=== PATIENT | male | born 1955 | race Caucasian/White ===

== ENCOUNTER 2018-01-28 13:32 | Inpatient (IN) | payer BC ==
[2018-01-28 14:13] LABS: Anisocytosis Slight; Basophils % (A) 0 %; Eosinophils # (A) 0.2 k/uL (0-0.7); Eosinophils % (A) 3 %; HCT 26.8 % (39.0-53.0); HGB 8.7 gm/dL (13.0-17.5); Hypochromasia Slight; Lymphocytes # (A) 1.1 k/uL (1.0-4.8); Lymphocytes % (A) 12 %; MCHC 32.3 g/dL (31.0-37.0); MCV 102.3 fL (80.0-100.0); Macrocytosis Moderate; Mean Platelet Volume 7.9; Monocytes # (A) 0.5 k/uL (0-1.0); Monocytes % (A) 6 %; Neutrophils # (A) 6.7 k/uL (1.3-7.7); Neutrophils % (A) 77 %; Platelet Count 264 k/uL (150-450); Poikilocytosis Slight; RBC 2.62 m/uL (4.30-5.90); RDW 16.6 % (11.5-15.5); WBC 8.6 k/uL (3.8-10.6)
[2018-01-28 14:22] LABS: INR 1.1 (<1.2); Partial Thromboplastin Time 22.2 sec (22.0-30.0)
[2018-01-28 14:23] LABS: ALT 37 U/L (21-72); AST 23 U/L (17-59); Albumin 3.2 g/dL (3.5-5.0); Alkaline Phosphatase 70 U/L (38-126); Anion Gap 12 mmol/L; Blood Urea Nitrogen 23 mg/dL (9-20); Calcium 8.6 mg/dL (8.4-10.2); Carbon Dioxide 32 mmol/L (22-30); Chloride 98 mmol/L (98-107); Glucose 107 mg/dL (74-99); Potassium 3.8 mmol/L (3.5-5.1); Sodium 142 mmol/L (137-145); Total Bilirubin 0.6 mg/dL (0.2-1.3); Total Protein 5.5 g/dL (6.3-8.2)
[2018-01-28 14:45] LABS: Creatine Kinase MB 0.6 ng/mL (0.0-2.4); Troponin I 0.023 ng/mL (0.000-0.034)
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
[2018-01-28] MEDS ORDERED: ONDANSETRON 4 MG/2 ML VIAL IVP PRN (16:07)
[2018-01-28] MEDS ORDERED: NALOXONE 0.4 MG/ML 1 ML VIAL IV PRN (16:07)
--- NOTE | 2018-01-28 16:31 | XR ---
EXAMINATION TYPE: XR chest 2V DATE OF EXAM: 01/28/2018 COMPARISON: 01/08/2015 HISTORY: Cough and chest discomfort TECHNIQUE: Frontal and lateral views of the chest are obtained. FINDINGS: There is no focal air space opacity, pleural effusion, or pneumothorax seen. The cardiac silhouette size is enlarged with multilead left-sided cardiac device. The osseous structures are in tact. Chronic mild right hemidiaphragm elevation is unchanged from the prior. Platelike left basilar subsegmental atelectasis is seen. Small amount of intrafissural fluid is noted on the right. Left-isaak ed acromioclavicular arthropathy and mild degenerative changes of the thoracic spine are seen. IMPRESSION: Platelike subsegmental left basilar atelectasis. No focal consolidation to suggest pneum onia. Trace amount of right intrafissural fluid.
--- NOTE | 2018-01-28 16:32 | XR ---
EXAMINATION TYPE: XR abdomen 1V DATE OF EXAM: 01/28/2018 4:23 PM CLINICAL HISTORY: Abdominal pain beginning today TECHNIQUE: Single view upright abdominal radiograph was obtained. COMPARISON: None. FINDINGS: Scattered gas is seen in non-distended small bowel loops. Gas and fecal material is seen in non-distended colon. There is no pneumoperitoneum or abnormal calcification appreciated. The lung ba ses are clear and the osseous structures are intact. Moderate calcific atheromatous changes are noted of the femoral arteries. Mild femoral acetabular arthropathy is seen bilaterally. IMPRESSION: Nonobstructive bowel gas pattern.
[2018-01-28 17:14] VITALS: BMI 40.1
[2018-01-28] MEDS: CARVEDILOL 12.5 MG TAB PO SCH (17:47)
[2018-01-28] MEDS: SODIUM CHLORIDE 0.9% 1,000 ML IV SCH (17:47)
[2018-01-28 20:32] LABS: Anisocytosis Slight; HCT 26.3 % (39.0-53.0); HGB 8.3 gm/dL (13.0-17.5); Hypochromasia Slight; MCH 32.7 pg (25.0-35.0); MCHC 31.6 g/dL (31.0-37.0); MCV 103.7 fL (80.0-100.0); Macrocytosis Moderate; Mean Platelet Volume 8.2; Platelet Count 227 k/uL (150-450); RBC 2.54 m/uL (4.30-5.90); RDW 16.2 % (11.5-15.5); WBC 8.9 k/uL (3.8-10.6)
[2018-01-28] MEDS: PANTOPRAZOLE 40 MG/10 ML VIAL IV SCH (21:10)
[2018-01-28] MEDS: SOTALOL 120 MG TAB PO SCH (21:10)
--- NOTE | 2018-01-28 22:11 | HP ---
CONSULTATION Barrie Santiago is a 62-year-old male who presented to the ER at [facility] with increasing dizziness. He also had been having some shortness of breath. This has been going on for 2-3 days. He was found to have a tarry black stool today and came in for further evaluation. When he came in, he was found to have anemia and was symptomatic. He subsequently was admitted for further evaluation. He is on anticoagulation in the form of Xarelto for paroxysmal atrial fibrillation and a history of ventricular tachycardia. PAST MEDICAL HISTORY: Positive for coronary artery disease, history of ventricular tachycardia. History of cardiomyopathy with biventricular failure with biventricular pacemaker placement as well as antiarrhythmic medication. History of hyperlipidemia, hypertension, history of obstructive sleep apnea for which he is on CPAP but does not use this. History of contusion in the past, history of left internal jugular vein thrombosis, history of left knee arthroscopy, history of anxiety, history of obesity, history of borderline diabetes mellitus. FAMILY HISTORY: Positive for coronary artery disease in his mother. History of myocardial infarction in his father. SOCIAL HISTORY: Patient is a former smoker. Does not drink alcohol excessively. REVIEW OF SYSTEMS: Noncontributory other than for what is described in the history of present illness. PAST MEDICAL HISTORY: He has no known drug allergies. MEDICATIONS: Prior to admission were Aldactone, Betapace, Xarelto, multivitamin, magnesium chloride, Cozaar, Lasix, Coreg and Lipitor. PHYSICAL EXAMINATION: He was lying in bed. He was short of breath when he laid down flat. He had pallor. His blood pressure was 104/50, respiratory rate of 18, pulse rate 81, temperature 97.9, O2 saturation on room is 95%. HEENT reveals pupils are equal. No jugular venous distention. Mallampati 3. He has a short, thick neck. Chest reveals decreased breath sounds. Mild prolonged expiration. No wheeze. Cardiovascular system reveals an S1, S2. No S3, no S4. ABDOMEN: Soft, there is 2+ to 3+ pedal edema. LABS: Reveal a white count of 8.6, hemoglobin of 8.7, MCV of 102.3, platelet count of 264,000. Sodium 142, potassium 3.8, chloride 98, bicarb 32, BUN 23, creatinine of 0.85. Stool for occult blood is positive. Albumin is 2.2, total protein of 5.5, glucose of 107. IMPRESSION: At this time. 1. Acute gastrointestinal bleed. 2. Symptomatic anemia. 3. Cardiomyopathy. 4. History of cardiac dysrhythmia and paroxysmal atrial fibrillation. 5. Obesity. 6. Obstructive sleep apnea. 7. Cor pulmonale with pulmonary hypertension from obstructive sleep apnea as well as cardiomyopathy is likely. At this point in time, we will admit the patient to the telemetry unit, stop his anticoagulation, keep him on his anti cardiac medications, keep him on Prilosec, have him seen by General Surgery, Dr. Byers. We will have cardiology further evaluate the patient as well as for his needs of long-term anticoagulation. He was counseled on the need to consider restarting using CPAP long-term and lose weight. His prognosis at this time is guarded. MMSHORTY / GAEL: [id number] /
[2018-01-28] MEDS: FUROSEMIDE 10 MG/ML 10 ML VIAL IV SCH (23:48)
[2018-01-29] MEDS: SODIUM CHLORIDE 0.9% 1,000 ML IV SCH ×3 (01:57→10:39)
[2018-01-29 04:27] LABS: HCT 25.8 % (39.0-53.0); HGB 8.5 gm/dL (13.0-17.5); Hypochromasia Slight; MCH 33.8 pg (25.0-35.0); MCHC 32.7 g/dL (31.0-37.0); MCV 103.3 fL (80.0-100.0); Macrocytosis Moderate; Mean Platelet Volume 7.8; Platelet Count 223 k/uL (150-450); RDW 15.9 % (11.5-15.5); WBC 7.4 k/uL (3.8-10.6)
[2018-01-29 04:38] LABS: ALT 41 U/L (21-72); AST 20 U/L (17-59); Albumin 2.8 g/dL (3.5-5.0); Alkaline Phosphatase 62 U/L (38-126); Anion Gap 11 mmol/L; Blood Urea Nitrogen 17 mg/dL (9-20); Carbon Dioxide 33 mmol/L (22-30); Chloride 101 mmol/L (98-107); Glucose 103 mg/dL (74-99); Potassium 3.3 mmol/L (3.5-5.1); Sodium 145 mmol/L (137-145); Total Bilirubin 0.6 mg/dL (0.2-1.3)
[2018-01-29 08:08] LABS: Anisocytosis Slight; HCT 24.8 % (39.0-53.0); HGB 8.1 gm/dL (13.0-17.5); Hypochromasia Slight; MCH 33.1 pg (25.0-35.0); MCHC 32.5 g/dL (31.0-37.0); MCV 101.6 fL (80.0-100.0); Macrocytosis Slight; Mean Platelet Volume 7.8; Platelet Count 232 k/uL (150-450); Poikilocytosis Slight; RBC 2.44 m/uL (4.30-5.90); RDW 16.2 % (11.5-15.5); WBC 7.8 k/uL (3.8-10.6)
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
[2018-01-29] MEDS: CARVEDILOL 12.5 MG TAB PO SCH ×2 (08:46→18:00)
[2018-01-29] MEDS: FUROSEMIDE 10 MG/ML 10 ML VIAL IV SCH ×3 (08:46→23:46)
[2018-01-29] MEDS: MAGNESIUM OXIDE 400 MG TAB PO SCH (08:47)
[2018-01-29] MEDS: ATORVASTATIN 20 MG TAB PO SCH (08:47)
[2018-01-29] MEDS: LOSARTAN 25 MG TAB PO SCH (08:47)
[2018-01-29] MEDS: MULTIVITAMINS, THERA 1 EACH TAB PO SCH (08:47)
[2018-01-29] MEDS: PANTOPRAZOLE 40 MG/10 ML VIAL IV SCH ×2 (08:47→22:20)
[2018-01-29] MEDS: SOTALOL 120 MG TAB PO SCH ×2 (09:24→22:20)
[2018-01-29] MEDS: SPIRONOLACTONE 25 MG TAB PO SCH (09:24)
--- NOTE | 2018-01-29 09:36 | CONS ---
CONSULTATION DATE OF SERVICE: 01/29/2018. HISTORY: Mr. Santiago is a 62-year-old male with a history of nonischemic cardiomyopathy, history of atrial fibrillation, history of ICD implantation, who presented with evidence of GI bleeding. Cardiology consultation was requested because of his prior history. The patient is noncompliant, has not seen Dr. Rosas in over a year. He has been running out of his Lasix and has been taking it less frequently. He also has been taking the Xarelto only twice a week. The patient was in the hospital in 2014 because of internal jugular thrombosis related to his ICD implantation. Recently, she has been complaining of progressive dyspnea on exertion, peripheral edema, orthopnea. He is limited in his physical activity. He denies any chest pain or dizziness. He denies any palpitations. He underwent cardiac catheterization in 2010 and was found to have a moderate triple vessel disease. He had a prior episode of paroxysmal atrial fibrillation, but appears to be in persistent atrial fibrillation at this time, and a prior episode of ventricular tachycardia. He has some dizziness but no syncope. In 2014, his ejection fraction was less than 20% with [id number] mitral and questionable thrombus in the apex. His coronary risk factors are positive for history of hypertension. He is a nonsmoker for over 30 years. He has a history of hyperlipidemia. REVIEW OF SYSTEMS: RESPIRATORY SYSTEM: Had dyspnea on exertion. No recent wheezing. GI SYSTEM: He had GI bleeding as noted, which is new for him. He has no prior history. SYSTEM: No dysuria or hematuria. NERVOUS SYSTEM: No stroke or seizure. PHYSICAL EXAMINATION: He is a 62-year-old male, alert, oriented, no apparent distress. Blood pressure 134/60 with a heart in the 80s. HEAD: Normocephalic. Eyes sclerae anicteric. NECK: No lungs with few crackles at the bases. HEART: Irregular irregular. S1, S2. No S3. Systolic murmur at the apex. No diastolic murmur. ABDOMEN: Soft and nontender. Positive bowel sounds. No organomegaly. EXTREMITIES: +2 edema bilaterally. LAB DATA: Lab data revealed a hemoglobin of 8.7 on admission, 8.1 today. BUN and creatinine of 17 and 0.8. Potassium is 3.3. He is heme positive. EKG revealed atrial fibrillation with interventricular conduction delay and nonspecific ST-T wave changes. Chest x-ray revealed no infiltrate. Abdominal x-ray shows no obstruction. IMPRESSION: 1. Gastrointestinal bleeding, probably worsened by the anticoagulation, although the patient has not been taking the Xarelto on a regular basis. 2. Severe nonischemic cardiomyopathy. 3. Atrial fibrillation, persistent. 4. Status post ICD implant. 5. History of coronary artery disease. 6. Hypertension. 7. Hyperlipidemia. 8. Noncompliance. RECOMMENDATIONS: I had discussed with the patient at length the importance of compliance in view of his prognosis. I explained to him the severity of his underlying cardiac disease. The patient has been re-initiated on his oral medication except the Xarelto and is receiving IV Lasix. We will follow his renal function closely. I will obtain a repeat echocardiogram. Depending on his progress, further recommendations will be made. Thank you for this consult. We will follow with you. LUCIANO / GAEL: [id number] /
[2018-01-29] MEDS ORDERED: Magnesium Replacement Protocol 1 EACH MISC MISCELLANE PRN (10:00)
[2018-01-29] MEDS ORDERED: Potassium Replacement Protocol 1 EACH MISC MISCELLANE PRN (10:00)
--- NOTE | 2018-01-29 10:06 | P.PN ---
Subjective Progress Note Date: 01/29/18 HPI: This is a 62-year-old male who presented to the ER at [facility] with increasing dizziness. He had also been having some shortness of breath. This has been going on for 2-3 days. He was found to have a tarry black stool today and came in for further evaluation. When he came in, he was found to have anemia and was symptomatic. He subsequently was admitted for further evaluation. He is on anticoagulation in the form of Xarelto for proximal atrial fibrillation with a history of ventricular tachycardia. Interval History: 01/29/18- patient is being seen examined and evaluated today on rounds. His hemoglobin is stable today at 8.1. He had a positive blood specimen. Xarelto has been on hold. He is being seen by surgical services and is planned for an upper and lower scope on 01/30/2018. He continues on IV Lasix as well as Aldactone. The patient states he does have some shortness of breath with exertion, denies any cough or congestion at this time. States he does have a CPAP machine at home however does not utilize that as he is unable to tolerate it and he cannot sleep with it on. His potassium today is 3.3 and that is being replaced. Objective - Vital Signs Vital signs: Vital Signs Temp 97.6 F 01/29/18 07:05 Pulse 85 01/29/18 07:05 Resp 18 01/29/18 07:05 BP 135/60 01/29/18 07:05 Pulse Ox 94 L 01/29/18 07:05 Intake & Output 01/28/18 01/29/18 01/29/18 18:59 06:59 18:59 Intake Total 500 Balance 500 Weight 127.006 kg 126 kg 126 kg Intake: IV 500 Sodium Chloride 0.9% 1, 500 000 ml @ 125 mls/hr IV . Q8H [facility] Rx#:[id number] Other: Voiding Method Toilet Toilet Toilet Bedside Commode Urinal # Voids 1 1 - Exam GENERAL EXAM: Alert, active, comfortable in no apparent distress. HEAD: Normocephalic. EYES: Normal reaction of pupils, equal size. NOSE: Clear with pink turbinates. THROAT: No erythema or exudates. NECK: No masses, no JVD. Supple, thick CHEST: No chest wall deformity. LUNGS: Equal air entry with no crackles, wheeze, rhonchi or dullness. CVS: S1 and S2 normal with no audible mumurs, regular rhythm. ABDOMEN: No hepatosplenomegaly, normal bowel sounds, no guarding or rigidity. EXTREMITIES: +2 edema noted, pedal pulses palpable. CENTRAL NERVOUS SYSTEM: No focal deficits, tone is normal in all 4 extremities. - Labs CBC & Chem 7: 01/29/18 07:30 01/29/18 04:02 Labs: Abnormal Lab Results - Last 24 Hours (Table) 01/28/18 01/28/18 01/28/18 Range/Units 14:05 14:05 14:05 RBC 2.62 L (4.30-5.90) m/uL Hgb 8.7 L (13.0-17.5) gm/dL Hct 26.8 L (39.0-53.0) % MCV 102.3 H (80.0-100.0) fL RDW 16.6 H (11.5-15.5) % Potassium (3.5-5.1) mmol/L Carbon Dioxide 32 H (22-30) mmol/L BUN 23 H (9-20) mg/dL Glucose 107 H (74-99) mg/dL Calcium (8.4-10.2) mg/dL Total Creatine Kinase 22 L (55-170) U/L Total Protein 5.5 L (6.3-8.2) g/dL Albumin 3.2 L (3.5-5.0) g/dL 01/28/18 01/29/18 01/29/18 Range/Units 20:15 04:02 04:02 RBC 2.54 L 2.50 L (4.30-5.90) m/uL Hgb 8.3 L 8.5 L (13.0-17.5) gm/dL Hct 26.3 L 25.8 L (39.0-53.0) % MCV 103.7 H 103.3 H (80.0-100.0) fL RDW 16.2 H 15.9 H (11.5-15.5) % Potassium 3.3 L (3.5-5.1) mmol/L Carbon Dioxide 33 H (22-30) mmol/L BUN (9-20) mg/dL Glucose 103 H (74-99) mg/dL Calcium 8.0 L (8.4-10.2) mg/dL Total Creatine Kinase (55-170) U/L Total Protein 5.0 L (6.3-8.2) g/dL Albumin 2.8 L (3.5-5.0) g/dL 01/29/18 Range/Units 07:30 RBC 2.44 L (4.30-5.90) m/uL Hgb 8.1 L (13.0-17.5) gm/dL Hct 24.8 L (39.0-53.0) % MCV 101.6 H (80.0-100.0) fL RDW 16.2 H (11.5-15.5) % Potassium (3.5-5.1) mmol/L Carbon Dioxide (22-30) mmol/L BUN (9-20) mg/dL Glucose (74-99) mg/dL Calcium (8.4-10.2) mg/dL Total Creatine Kinase (55-170) U/L Total Protein (6.3-8.2) g/dL Albumin (3.5-5.0) g/dL Assessment and Plan Assessment: Assessment Acute GI bleed Symptomatic anemia, from blood loss, occult stool positive Cardiomyopathy History of cardiac dysrhythmia and proximal atrial fibrillation Obesity Obstructive sleep apnea Cor pulmonale pulmonary hypertension from obstructive sleep apnea as well as cardiomyopathy is likely Plan Medications have been reviewed and will be continued as ordered. We will replace potassium per protocol. Continue with diuresis and maintain a negative fluid balance. Patient is scheduled to undergo a upper and lower endoscopy with surgical services tomorrow morning. Cardiology also on consult to evaluate the patient's need for long-term anticoagulation. Patient has been educated on the importance of using his CPAP as well as weight loss. Continue with pulmonary hygiene, coughing and deep breathing exercises, and supportive care. Supplemental oxygen to maintain oxygen saturations of 92% or better. Continue nebulizer treatments. GI and DVT prophylaxis. We will continue to monitor labs/results and adjust treatment as necessary. Further recommendations pending. I performed an examination of the patient and discussed their management with the nurse practitioner. I have reviewed the nurse practitioner's note and agree with the documented findings and plan of care.
[2018-01-29] MEDS: POTASSIUM CHLORIDE ER 20 MEQ TAB.ER PO SCH ×2 (10:40→11:36)
[2018-01-29] MEDS ORDERED: PEG 3350-NA SULF,BICARB,CL/KCL 4,000 ML BOTTLE PO ONE (12:00)
--- NOTE | 2018-01-29 12:38 | ECHOF ---
Referral Reason:cm MEASUREMENTS -------- HEIGHT: 177.8 cm WEIGHT: 125.6 kg BP: 135/60 IVSd: 1.4 cm (0.6 - 1.1) LVIDd: 5.8 cm (3.9 - 5.3) LVPWd: 1.4 cm (0.6 - 1.1) IVSs: 1.7 cm LVIDs: 5.2 cm LVPWs: 1.6 cm LAESV Index (A-L): 56.08 ml/m Ao Diam: 3.5 cm (2.0 - 3.7) AV Cusp: 2.0 cm (1.5 - 2.6) LA Diam: 5.4 cm (2.7 - 3.8) EPSS: 1.6 cm MV E Cr: 1.22 m/s MV DecT: 153 ms MV A Cr: 0.00 m/s MV E/A Ratio: 620.79 RAP: 15.00 mmHg RVSP: 39.89 mmHg MV EF SLOPE: 55.97 mm/s (70 - 150) MV EXCURSION: 1.95 cm (> 18.000) FINDINGS -------- Atrial fibrillation. Pacerwire seen in RV and RA. This was a technically adequate study. The left ventricular size is normal. There is moderate concentric left ventricular hypertrophy. T here is severe global hypokinesis of LV . Overall left ventricular systolic function is severely im paired with, an EF < 20%. The right ventricle is normal in size and function. LA is severely dilated >40 ml/m2 Electronic pacemaker lead seen in the right ventricular cavity. There is mild aortic valve sclerosis. Mild mitral annular calcification present. [id number] mitral regurgitation is present. Moderate tricuspid regurgitation present. There is mild pulmonary hypertension. The right ventric ular systolic pressure, as measured by Doppler, is 39.89mmHg. The pulmonic valve was not well visualized. There is no pulmonic regurgitation present. The aortic root size is normal. The inferior vena cava is dilated with no significant inspiratory collapse which is consistent estima shira right atrial pressure of >20 mmHg. There is no pericardial effusion. CONCLUSIONS -------- 1. Atrial fibrillation. 2. Pacerwire seen in RV and RA. 3. This was a technically adequate study. 4. The left ventricular size is normal. 5. There is moderate concentric left ventricular hypertrophy. 6. There is severe global hypokinesis of LV . 7. Overall left ventricular systolic function is severely impaired with, an EF < 20%. 8. LA is severely dilated >40 ml/m2 9. Electronic pacemaker lead seen in the right ventricular cavity. 10. There is mild aortic valve sclerosis. 11. Mild mitral annular calcification present. 12. Sywflyho-zc-qgcabt mitral regurgitation is present. 13. Moderate tricuspid regurgitation present. 14. There is mild pulmonary hypertension. 15. The pulmonic valve was not well visualized. 16. There is no pulmonic regurgitation present. 17. The aortic root size is normal. 18. The inferior vena cava is dilated with no significant inspiratory collapse which is consistent es timated right atrial pressure of >20 mmHg. 19. There is no pericardial effusion. MATERIAL CUTTER: Jose Delaney RDCS
[2018-01-29 21:01] LABS: Anisocytosis Slight; Basophils # (A) 0.1 k/uL (0-0.2); Basophils % (A) 1 %; Eosinophils # (A) 0.2 k/uL (0-0.7); Eosinophils % (A) 3 %; HCT 26.8 % (39.0-53.0); HGB 8.6 gm/dL (13.0-17.5); Hypochromasia Slight; Lymphocytes # (A) 1.2 k/uL (1.0-4.8); Lymphocytes % (A) 16 %; MCH 32.8 pg (25.0-35.0); MCV 102.4 fL (80.0-100.0); Macrocytosis Moderate; Mean Platelet Volume 7.3; Monocytes # (A) 0.7 k/uL (0-1.0); Monocytes % (A) 9 %; Neutrophils # (A) 5.4 k/uL (1.3-7.7); Neutrophils % (A) 70 %; Platelet Count 275 k/uL (150-450); Poikilocytosis Slight; RBC 2.61 m/uL (4.30-5.90); RDW 16.2 % (11.5-15.5); WBC 7.7 k/uL (3.8-10.6)
[2018-01-30 07:47] VITALS: RESP 16
[2018-01-30 07:57] LABS: Anisocytosis Slight; Basophils % (A) 0 %; Eosinophils # (A) 0.2 k/uL (0-0.7); Eosinophils % (A) 2 %; HCT 29.6 % (39.0-53.0); HGB 9.1 gm/dL (13.0-17.5); Hypochromasia Moderate; Lymphocytes # (A) 1.1 k/uL (1.0-4.8); Lymphocytes % (A) 15 %; MCH 31.7 pg (25.0-35.0); MCHC 30.6 g/dL (31.0-37.0); MCV 103.5 fL (80.0-100.0); Macrocytosis Moderate; Mean Platelet Volume 7.7; Monocytes # (A) 0.5 k/uL (0-1.0); Monocytes % (A) 6 %; Neutrophils # (A) 5.4 k/uL (1.3-7.7); Neutrophils % (A) 75 %; Platelet Count 298 k/uL (150-450); Poikilocytosis Slight; RBC 2.86 m/uL (4.30-5.90); RDW 16.1 % (11.5-15.5); WBC 7.2 k/uL (3.8-10.6)
[2018-01-30] MEDS ORDERED: PROPOFOL 10 MG/ML 20 ML VIAL IV ONE (08:11)
[2018-01-30] MEDS ORDERED: LIDOCAINE 1% INJ 10MG/ML (20 ML MDV) ONE (08:11)
[2018-01-30 08:12] LABS: Blood Urea Nitrogen 11 mg/dL (9-20); Calcium 8.1 mg/dL (8.4-10.2); Magnesium 1.7 mg/dL (1.6-2.3); Potassium 3.3 mmol/L (3.5-5.1); Sodium 145 mmol/L (137-145)
[2018-01-30 08:16] LABS: Anion Gap 13 mmol/L; Carbon Dioxide 33 mmol/L (22-30); Chloride 99 mmol/L (98-107); Glucose 102 mg/dL (74-99)
[2018-01-30] MEDS ORDERED: IV FLUID CONTINUATION 900 ML IV ONE (08:25)
--- NOTE | 2018-01-30 08:51 | P.OP ---
Date of Procedure: 01/30/18 Preoperative Diagnosis: GI bleed Postoperative Diagnosis: Gastritis Duodenitis Healing gastric ulcer Insufficient prep Procedure(s) Performed: Esophagogastroduodenoscopy with biopsy Attempted colonoscopy Surgeon: Keith Byers Pathology: other (Biopsies of duodenum, antrum, esophagus) Condition: stable Disposition: floor Indications for Procedure: 62-year-old male presented to the emergency department due to black and tarry stool and shortness of breath. Due to this, plan for upper and lower endoscopy was made. The patient was explained the risks, benefits and alternatives to the procedure and provided consent prior to attending the endoscopy suite. Operative Findings: Notable inflammatory changes and a healing ulcer in the antrum and inflammatory changes in the first portion of the duodenum, esophagus appeared endoscopically normal Description of Procedure: The patient was brought into the endoscopy suite and placed in the left lateral decubitus position. Sedation was provided by anesthesia. The endoscope was then placed into the oropharynx and into the esophagus and advanced to the second portion of the duodenum. The scope was then slowly retrieved into the first portion the duodenum and it was noted to have inflammatory changes. Biopsies were taken. The scope was then retrieved into the antrum of the stomach. There appeared to be an area of a previous small ulcer that was healing. There was no active stigmata of bleeding. Biopsies of the antrum were taken. A retroflexed view was then performed. The stomach was noted to insufflate appropriately. The gastric folds distended appropriately. There was no obvious polypoid or additional inflammatory changes. There was no significant hiatal hernia. The scope was then retrieved into the esophagus. The esophagus appeared endoscopically normal. Biopsies were taken. The scope was then fully retrieved and this ended this portion of the procedure. A digital rectal exam was performed and the patient was noted to have mild internal hemorrhoids. The endoscope was then placed into the rectum and it was immediately clear that the patient still had solid stool throughout his rectum. There was no appropriate view to continue to advance the colonoscope and it was deemed unsafe to continue with this procedure. The colonoscopy portion of this case was then aborted. The patient can begin a regular diet. He will require a PPI during admission and at discharge. He will require follow-up to perform a colonoscopy as an outpatient.
[2018-01-30 09:00] VITALS: TEMP 983
[2018-01-30 09:14] VITALS: BP 135/85; PULSE 79
[2018-01-30] MEDS: CARVEDILOL 12.5 MG TAB PO SCH (09:14)
[2018-01-30] MEDS: PANTOPRAZOLE 40 MG/10 ML VIAL IV SCH (09:14)
[2018-01-30] MEDS: FUROSEMIDE 10 MG/ML 10 ML VIAL IV SCH (09:15)
[2018-01-30] MEDS: SPIRONOLACTONE 25 MG TAB PO SCH (09:17)
[2018-01-30] MEDS: ATORVASTATIN 20 MG TAB PO SCH (09:17)
[2018-01-30] MEDS: MAGNESIUM OXIDE 400 MG TAB PO SCH (09:17)
[2018-01-30] MEDS: MULTIVITAMINS, THERA 1 EACH TAB PO SCH (09:17)
[2018-01-30] MEDS: SOTALOL 120 MG TAB PO SCH (09:17)
[2018-01-30] MEDS: LOSARTAN 25 MG TAB PO SCH (09:17)
[2018-01-30] MEDS ORDERED: LACTATED RINGERS 1,000 ML IV SCH (09:29)
[2018-01-30] MEDS ORDERED: LIDOCAINE 1% 20 ML VIAL (10MG/ML) FOR IV START INTRADERMA PRN (09:29)
--- NOTE | 2018-01-30 10:24 | P.DS ---
Providers Date of admission: 01/29/18 08:37 Expected date of discharge: 01/30/18 Attending physician: Leno Burrows Consults: 01/28/18 16:08 Consult Physician Routine Consulting Provider: Keith Byers Consult Reason/Comments: Upper GI bleed with anemia Do you want consulting provider notified?: Yes 01/28/18 16:56 Consult Physician Routine Consulting Provider: Jeremy Rosas Consult Reason/Comments: cardiac arrhythmia Do you want consulting provider notified?: Yes Primary care physician: Leno Burrows Hospital Course: HPI: This is a 62-year-old male who presented to the ER at [facility] with increasing dizziness. He had also been having some shortness of breath. This has been going on for 2-3 days. He was found to have a tarry black stool today and came in for further evaluation. When he came in, he was found to have anemia and was symptomatic. He subsequently was admitted for further evaluation. He is on anticoagulation in the form of Xarelto for proximal atrial fibrillation with a history of ventricular tachycardia. Interval History: 01/29/18- patient is being seen examined and evaluated today on rounds. His hemoglobin is stable today at 8.1. He had a positive blood specimen. Xarelto has been on hold. He is being seen by surgical services and is planned for an upper and lower scope on 01/30/2018. He continues on IV Lasix as well as Aldactone. The patient states he does have some shortness of breath with exertion, denies any cough or congestion at this time. States he does have a CPAP machine at home however does not utilize that as he is unable to tolerate it and he cannot sleep with it on. His potassium today is 3.3 and that is being replaced. 01/30/18- patient being seen examined and evaluated today on rounds. The patient is resting up in bed on room air. He did undergo an EGD this morning and was shown to have some healing gastric ulcers with no active bleeding. Colonoscopy was unable to be completed due to insufficient prep. Surgical services raised requesting an outpatient colonoscopy be completed. Also surgical services recommendation that the patient continue with those people PI and he can also be restarted on his anticoagulation on discharge. Pertinent Studies: Abdominal x-ray Chest x-ray Echocardiogram Procedures: EGD Patient Condition at Discharge: Fair Plan - Discharge Summary Discharge Rx Participant: Yes New Discharge Prescriptions: New Pantoprazole [Protonix] 40 mg PO AC-BID #60 tablet. Continue Magnesium Chloride [Mag64] 64 mg PO DAILY Multivitamin [Men's Multi-Vitamin] 1 tab PO DAILY Spironolactone [Aldactone] 25 mg PO DAILY tab Carvedilol [Coreg] 50 mg PO BID Atorvastatin [Lipitor] 20 mg PO DAILY Losartan [Cozaar] 25 mg PO DAILY Furosemide [Lasix] 40 mg PO BID Sotalol [Betapace] 120 mg PO BID Rivaroxaban [Xarelto] 20 mg PO Q3D Discharge Medication List Magnesium Chloride [Mag64] 64 mg PO DAILY 05/05/14 [History] Multivitamin [Men's Multi-Vitamin] 1 tab PO DAILY 01/08/15 [History] Spironolactone [Aldactone] 25 mg PO DAILY tab 01/11/15 [Rx] Carvedilol [Coreg] 50 mg PO BID 08/29/16 [History] Atorvastatin [Lipitor] 20 mg PO DAILY 09/01/16 [History] Losartan [Cozaar] 25 mg PO DAILY 09/01/16 [History] Furosemide [Lasix] 40 mg PO BID 01/28/18 [History] Rivaroxaban [Xarelto] 20 mg PO Q3D 01/28/18 [History] Sotalol [Betapace] 120 mg PO BID 01/28/18 [History] Pantoprazole [Protonix] 40 mg PO AC-BID #60 tablet. 01/30/18 [Rx] Follow up Appointment(s)/Referral(s): Jeremy Rosas MD [STAFF PHYSICIAN] - 1 Week Keith Byers DO [Doctor of Osteopathic Medicine] - 1 Week Leno Burrows MD [Primary Care Provider] - 1-2 days Patient Instructions/Handouts: Gastrointestinal Bleeding (DC), Heart Failure ( ED) Discharge Disposition: HOME SELF-CARE
[2018-01-30] MEDS: POTASSIUM CHLORIDE ER 20 MEQ TAB.ER PO SCH ×3 (11:25→12:34)
--- NOTE | 2018-01-30 13:37 | P.PN ---
Subjective Progress Note Date: 01/30/18 Mr. Kirkland is seen and examined today sitting up eating breakfast in no acute distress. Echocardiogram obtained yesterday reveals severe global hypokinesia, severely impaired left ventricular systolic function with ejection fraction less than 20%, severely dilated left atrium, mild aortic valve sclerosis, mild to moderate mitral regurgitation and moderate tricuspid regurgitation. He underwent EGD this morning which revealed a healing ulcer and inflammatory changes. Colonoscopy was aborted secondary to poor prep. He was initiated on Protonix twice a day. He continues to have significant swelling in his bilateral lower extremities. Diuretics have been changed to oral per primary care team. He is down 7 kg since admission. Creatinine today 0.82, potassium 3.3, sodium 145, hemoglobin 9.1. Blood pressure 135/85 heart rate 79 afebrile maintaining oxygen saturation on room air. Objective - Vital Signs Vital signs: Vital Signs Temp 983 F H 01/30/18 08:59 Pulse 79 01/30/18 09:13 Resp 16 01/30/18 07:12 BP 135/85 01/30/18 09:13 Pulse Ox 96 01/30/18 09:13 Intake & Output 01/29/18 01/30/18 01/30/18 18:59 06:59 18:59 Intake Total 5400 100 Balance 5400 100 Weight 126 kg 120.5 kg Intake: IV 250 100 Sodium Chloride 0.9% 1, 250 000 ml @ 125 mls/hr IV . Q8H [facility] Rx#:[id number] Intake, IV Titration 300 Amount Sodium Chloride 0.9% 1, 300 000 ml @ 60 mls/hr IV . [id number] [facility] Rx#:[id number] Oral 4850 Other: Voiding Method Toilet Toilet Toilet Bedside Commode Bedside Commode Bedside Commode Urinal Urinal Urinal # Voids 6 4 # Bowel Movements 2 - Exam GENERAL: Well-appearing, well-nourished and in no acute distress. Obese. NECK: Supple without JVD or thyromegaly. LUNGS: Bibasilar rales. Respiration equal and unlabored. No wheezes or rhonchi. HEART: Irregular rate and rhythm with systolic murmur at the apex, no rubs or gallops. S1 and S2 heard. EXTREMITIES: Normal range of motion, 2+ bilateral lower extremity edema. No clubbing or cyanosis. Peripheral pulses intact. - Labs CBC & Chem 7: 01/30/18 07:25 01/30/18 07:25 Labs: Abnormal Lab Results - Last 24 Hours (Table) 01/29/18 01/30/18 01/30/18 Range/Units 20:40 07:25 07:25 RBC 2.61 L 2.86 L (4.30-5.90) m/uL Hgb 8.6 L 9.1 L (13.0-17.5) gm/dL Hct 26.8 L 29.6 L (39.0-53.0) % MCV 102.4 H 103.5 H (80.0-100.0) fL MCHC 30.6 L (31.0-37.0) g/dL RDW 16.2 H 16.1 H (11.5-15.5) % Potassium 3.3 L (3.5-5.1) mmol/L Carbon Dioxide 33 H (22-30) mmol/L Glucose 102 H (74-99) mg/dL Calcium 8.1 L (8.4-10.2) mg/dL Assessment and Plan Assessment: ASSESSMENT 1. Gastrointestinal bleeding, EGD revealed healing ulcer with inflammatory changes. Colonoscopy aborted secondary to poor bowel prep. Follow-up as an outpatient. 2. Severe nonischemic cardiomyopathy 3. Chronic persistent atrial fibrillation with controlled ventricular response , anticoagulation currently on hold secondary to GI bleeding 4. Status post ICD implant 5. History of coronary artery disease 6. Hypertension 7. Dyslipidemia 8. Hypokalemia, replaced 9. Noncompliance PLAN Anticoagulation should be resumed as soon as appropriate per surgical team. Continue with Aldactone, carvedilol, atorvastatin, losartan, Lasix and sotalol upon discharge. Please make follow-up appointment with Dr. Pablo for 2 weeks. Importance of follow-up and compliance discussed with the patient again and he verbalizes understanding and agreement. Nurse Practitioner note has been reviewed, I agree with a documented findings and plan of care. Patient was seen and examined.
[2018-01-30] MEDS ORDERED: FUROSEMIDE 40 MG TAB PO SCH (16:00)
[2018-01-30] MEDS ORDERED: PANTOPRAZOLE 40 MG TABLET PO SCH (17:30)
== END 2018-01-30 13:15 | disposition home or self-care (01) | DRG 378 ==
LOC: EC 13:32 → 5MS5E 16:18 → OBSVTOIN 01-29 08:37
PROVIDERS: ADMIT Internal Medicine Pulmonary Disease; ATTEND Internal Medicine Pulmonary Disease
PROC: 0DB58ZX Excision of Esophagus, Via Natural or Artificial Opening Endoscopic, Diagnostic (ICD-10-PCS; 2018-01-30)
PROC: 0DB98ZX Excision of Duodenum, Via Natural or Artificial Opening Endoscopic, Diagnostic (ICD-10-PCS; principal; 2018-01-30 08:00)
PROC: 0DB78ZX Excision of Stomach, Pylorus, Via Natural or Artificial Opening Endoscopic, Diagnostic (ICD-10-PCS; 2018-01-30 08:00)
DX: K92.2 Gastrointestinal hemorrhage, unspecified (principal); D62 Acute posthemorrhagic anemia; I42.9 Cardiomyopathy, unspecified; I08.3 Combined rheumatic disorders of mitral, aortic and tricuspid valves; I11.0 Hypertensive heart disease with heart failure; I27.29 Other secondary pulmonary hypertension; I27.81 Cor pulmonale (chronic); I48.2 Chronic atrial fibrillation; I50.82 Biventricular heart failure; E11.9 Type 2 diabetes mellitus without complications; E66.9 Obesity, unspecified; E78.5 Hyperlipidemia, unspecified; E87.6 Hypokalemia; G47.33 Obstructive sleep apnea (adult) (pediatric); I25.10 Atherosclerotic heart disease of native coronary artery without angina pectoris; I25.2 Old myocardial infarction; K25.4 Chronic or unspecified gastric ulcer with hemorrhage; K29.70 Gastritis, unspecified, without bleeding; K29.80 Duodenitis without bleeding; F41.9 Anxiety disorder, unspecified; M19.90 Unspecified osteoarthritis, unspecified site; K25.9 Gastric ulcer, unspecified as acute or chronic, without hemorrhage or perforation; K64.8 Other hemorrhoids; Z95.810 Presence of automatic (implantable) cardiac defibrillator; Z91.19 Patient's noncompliance with other medical treatment and regimen; Z87.891 Personal history of nicotine dependence; Z86.79 Personal history of other diseases of the circulatory system; Z86.718 Personal history of other venous thrombosis and embolism; Z79.01 Long term (current) use of anticoagulants; Z79.899 Other long term (current) drug therapy; Z87.01 Personal history of pneumonia (recurrent); Z68.38 Body mass index [BMI] 38.0-38.9, adult
CPT/HCPCS: 36415; 43239; 45378; 71046; 74018; 80048; 80053; 82272; 82550; 82553; 83735; 84484; 85025; 85027; 85610; 85730; 86850; 86900; 86901; 88305; 93005; 93306; 99285